=== PATIENT | female | born 1980 | race Caucasian/White ===

== ENCOUNTER 2018-07-18 14:17 | Emergency (ER) | payer OTHER ==
[~2018-07-18] VITALS: Ht 160 cm; Wt 88.5 kg
[2018-07-18 14:23] VITALS: BP 118/82
--- NOTE | 2018-07-18 14:37 | NUR ---
38 YO F BIB SELF W/ C/O STOMACH PAIN 6/10 LEFT LOWER ABD RADIATING TO LEFT LOWER BACK X LAST NIGHT. N/V THAT BEGAN THIS MORNING AROUND 0930. PT REPORTS THAT SHE HAS BEEN UNABLE TO EAT TODAY, HAS BEEN DRINKING WATER TOLERATED. AAOX4, GCS 15, CMS INTACT, ABD SOFT, NON-TENDER. BOWEL SOUNDS ACTIVE X4. ER MD MADE AWARE, WILL CONTINUE TO MONITOR. HX DENIES RX DENIES
--- NOTE | 2018-07-18 15:38 | NUR ---
Patient being evaluated by physician at bedside.
[2018-07-18] MEDS ORDERED: KETOROLAC 60 MG/2 ML VIAL IM ONE (15:45)
[2018-07-18] MEDS ORDERED: ONDANSETRON 4 MG/2 ML VIAL IVP ONE (15:45)
[2018-07-18] MEDS ORDERED: ONDANSETRON 4 MG ODT PO ONE (16:00)
--- NOTE | 2018-07-18 16:00 | NUR ---
PT RESTING IN BED WTH FAMILY AT BEDSIDE
[2018-07-18 16:45] VITALS: BP 115/87
--- NOTE | 2018-07-18 16:45 | NUR ---
Patient discharged with v/s stable. Written and verbal after care instructions given and explained. Patient alert, oriented and verbalized understanding of instructions. Ambulatory with steady gait. All questions addressed prior to discharge. ID band removed. Patient advised to follow up with PMD. Rx of ZOFRAN, MOTRIN,CIPRO given. Patient educated on indication of medication including possible reaction and side effects. Opportunity to ask questions provided and answered.
== END 2018-07-18 16:45 | disposition home or self-care (01) ==
LOC: MED 14:17
DX: N39.0 Urinary tract infection, site not specified (principal); R11.2 Nausea with vomiting, unspecified
CPT/HCPCS: 81002; 81025; 96372; 99283; J1885; S0119; J2405

== ENCOUNTER 2019-09-13 22:04 | Emergency (ER) | payer OTHER ==
[~2019-09-13] VITALS: Ht 157.5 cm; Wt 90.7 kg
--- NOTE | 2019-09-13 22:07 | NUR ---
PT EMILIA ALS. TAKEN TO BED 3
[2019-09-13 22:10] VITALS: BP 120/52
--- NOTE | 2019-09-13 22:10 | NUR ---
39 Y/O FEMALE C/O ABD PAIN W/ NAUSEA. PAIN IS AN 10/10 ACUTE PAIN RADIATING TO THE LOWER BACK. A/OX3 FOLLOWS COMMANDS; BREATHING UNLABORED AND SYMMETRICAL. PATIENT STATES THAT SHE IS CURRENTLY ON HER PERIOD AND IS EXPERIENCING ABDOMINAL CRAMPING. "I TEND TO USE ABOUT A PACK OF PADS WITHIN ALMOST A DAY; AND HAVE BLOOD CLOTS". ERMD MADE AWARE OF STATUS. SIDE RAILSX1 AND PLACED ON MONITOR. PMH:DENIES RX:DENIES NKDA
[2019-09-13] MEDS ORDERED: NACL 0.9% 500 ML IV ONE (22:57)
[2019-09-13] MEDS ORDERED: ONDANSETRON 4 MG/2 ML VIAL IVP ONE (23:00)
[2019-09-13] MEDS ORDERED: KETOROLAC 30 MG/ML VIAL IVP ONE (23:00)
[2019-09-13 23:31] LABS: BASOPHILS % (AUTO) 0.4 % (0.0-2.0); EOSINOPHILS # (AUTO) 0.2 K/uL (0-0.4); EOSINOPHILS % (AUTO) 1.9 % (0.0-4.0); HEMOGLOBIN 13.5 g/dL (12.0-16.0); LYMPHOCYTES # (AUTO) 1.5 K/uL (2.5-16.5); LYMPHOCYTES % (AUTO) 14.7 % (20.5-51.1); MEAN CORPUSCULAR HEMOGLOBIN 30 pg (27-31); MEAN CORPUSCULAR HGB CONC 33 g/dL (33-37); MONOCYTES # (AUTO) 0.5 K/uL (0.8-1.0); MONOCYTES % (AUTO) 4.6 % (1.7-9.3); NEUTROPHILS # (AUTO) 8.2 K/uL (1.8-7.7); NEUTROPHILS % (AUTO) 78.4 % (42.2-75.2); PLATELET COUNT (AUTO) 303 K/uL (140-450); RED BLOOD CELL COUNT(AUTO) 4.55 MIL/uL (4.20-5.40); WHITE BLOOD COUNT (AUTO) 10.4 K/uL (4.8-10.8)
[2019-09-13] MEDS ORDERED: MORPHINE SULFATE 2 MG/ML SYR IVP ONE (23:40)
[2019-09-13] MEDS ORDERED: NACL 0.9% 1,500 ML IV ONE (23:50)
[2019-09-13 23:54] LABS: ALBUMIN 3.4 g/dL (3.4-5.0); CARBON DIOXIDE 24.9 mmol/L (21-32); CREATININE 0.7 mg/dL (0.6-1.3); POTASSIUM 3.9 mmol/L (3.5-5.1); TOTAL BILIRUBIN 0.3 mg/dL (0.0-1.0)
--- NOTE | 2019-09-14 00:08 | NUR ---
PATIENT IN NO DISTRESS AT THIS TIME. WILL CONTINUE TO MONITOR.
[2019-09-14 01:31] VITALS: BP 128/54
--- NOTE | 2019-09-14 01:34 | NUR ---
Patient discharged with v/s stable. Written and verbal after care instructions given and explained. Patient alert, oriented and verbalized understanding of instructions. Ambulatory with STEADY GAIT to home ACCOMPANIED BY FAMILY MEMBER. All questions addressed prior to discharge. ID band removed. Patient advised to follow up with PMD. Rx of LACTULOSE 10GM/15ML SOLUTION given. Patient educated on indication of medication including possible reaction and side effects. Opportunity to ask questions provided and answered.
--- NOTE | 2019-09-14 13:06 | NUR ---
Late entry. COnfirmed with RN that 0.9 NS IV 1000ml completed at 0130
== END 2019-09-14 01:34 | disposition home or self-care (01) ==
LOC: MED 22:04
DX: K59.00 Constipation, unspecified (principal); M54.6 Pain in thoracic spine; R07.89 Other chest pain
CPT/HCPCS: 36415; 74022; 80053; 83690; 85025; 96361; 96374; 96375; 99284; J1885; J2270; J2405; J7030